=== PATIENT | female | born 1990 ===

== ENCOUNTER 2020-08-09 00:36 | Inpatient (IN) | payer OTHER ==
[2020-08-09] MEDS ORDERED: MINERAL OIL 30 ML ORAL LIQD PO PRN (02:48)
[2020-08-09] MEDS ORDERED: ePHEDrine SULFATE 50 MG/1 ML INJ IV PRN (02:48)
[2020-08-09] MEDS ORDERED: TERBUTALINE 1 MG/1 ML INJ SUB-Q PRN (02:48)
[2020-08-09] MEDS ORDERED: BUTORPHANOL 2 MG/1 ML INJ IV PRN (02:48)
[2020-08-09] MEDS ORDERED: ONDANSETRON 4 MG/2 ML INJ IV PRN (02:48)
[2020-08-09] MEDS ORDERED: LIDOCAINE (2%) 20 MG/1 ML VIAL 20 ML MDV INFILTRATI ONE (02:48)
[2020-08-09] MEDS ORDERED: OXYTOCIN DRIP 30 UNITS/500 ML BAG IV SCH ×2 (03:00→07:00)
[2020-08-09] MEDS ORDERED: LACTATED RINGERS 1,000 ML IV SCH (03:00)
--- NOTE | 2020-08-09 03:33 | Ultrasound Report ---
Limited OB ultrasound INDICATION: , evaluate amniotic fluid index FINDINGS: There is a single intrauterine in cephalic presentation. Amniotic fluid index is 5.8 cm whi ch is decreased. heart rate is 127 bpm. IMPRESSION: Amniotic fluid index is 5.8 cm which is below normal. BIOPHYSICAL PROFILE FINDINGS: breathing movement: 2/2 movement: 2/2 posture and tone: 2/2 Qualitative amniotic fluid volume: 2/2 IMPRESSION: Total score for biophysical profile is 8/8 heart rate is 127 bpm Signer Name: Rajesh Raya MD Signed: 08/09/2020 3:28 AM Workstation Name: [id number]
[2020-08-09 04:39] LABS: Hematocrit 36.4 % (30.3-42.9); Hemoglobin 11.5 gm/dl (10.1-14.3); Mean Corpuscular HGB Conc 32 % (30-34); Mean Corpuscular Volume 77 fl (79-97); Platelet Count 287 K/mm3 (140-440); Red Blood Count 4.72 M/mm3 (3.65-5.03); Red Cell Distribution Width 16.4 % (13.2-15.2)
[2020-08-09] MEDS ORDERED: fentaNYL 100 MCG/2 ML INJ IV PRN (05:52)
--- NOTE | 2020-08-09 06:48 | History and Physical Report ---
History of Present Illness Date of examination: 08/09/20 Date of admission: 08/09/20 02:49 Chief complaint: Labor pains History of present illness: Early entry to care at 6 4/7 weeks to [facility]. course complicated by maternal obesity (BMI 31) and anemia. Past History Past Medical History: no pertinent history Past Surgical History: no surgical history Family/Genetic History: other (hemophilia - son, brother) - Obstetrical History Expected Date of Delivery: 08/12/20 Actual Gestation: 39 Week(s) 4 Day(s) : 3 Para: 2 Hx # Term Pregnancies: 2 Number of Pregnancies: 0 Spontaneous Abortions: 0 Induced : 0 Number of Living Children: 2 #1 Gender: Female year: 2[birth year] Birthweight: 2.608 kg Method of Delivery: Vaginal Gestational age at delivery: 40 Complications: none #2 Infant Gender: Male year: 2,[birth year] Birthweight: 3.062 kg Method of Delivery: Vaginal Gestational age at delivery: 40 Complications: none Medications and Allergies Allergies Allergy/AdvReac Type Severity Reaction Status Date / Time No Known Allergies Allergy Unverified 08/09/20 01:33 Active Meds: Active Medications Butorphanol Tartrate (Butorphanol 2 Mg/1 Ml Inj) 2 mg IV Q2H PRN PRN Reason: Pain , Severe (7-10) Ephedrine Sulfate (Ephedrine Sulfate 50 Mg/1 Ml Inj) 10 mg IV Q2M PRN PRN Reason: Hypotension Fentanyl (Fentanyl 100 Mcg/2 Ml Inj) 100 mcg IV Q2H PRN PRN Reason: Labor Pain Last Admin: 08/09/20 05:55 Dose: 100 mcg Documented by: Oxytocin/Sodium Chloride (Pitocin/Ns 30 Unit/500ml) 30 units in 500 mls @ 2 mls/hr IV TITR SOY; Protocol Lactated Ringer's (Lactated Ringers) 1,000 mls @ 125 mls/hr IV DIRECT SOY Oxytocin/Sodium Chloride (Pitocin/Ns 30 Unit/500ml) 30 units in 500 mls @ 40 mls/hr IV TITR SOY; Protocol Mineral Oil (Mineral Oil 30 Ml Oral Liqd) 30 ml PO QHS PRN PRN Reason: Constipation Ondansetron HCl (Ondansetron 4 Mg/2 Ml Inj) 4 mg IV Q8H PRN PRN Reason: Nausea And Vomiting Terbutaline Sulfate (Terbutaline 1 Mg/1 Ml Inj) 0.25 mg SUB-Q ONCE PRN PRN Reason: Hyperstimulation/Hypertonicity Review of Systems All systems: negative - Vital Signs Vital signs: Vital Signs Pulse Pulse Ox 65 99 08/09/20 01:00 08/09/20 01:00 Temp Pulse Resp BP Pulse Ox 97.9 F 72 20 107/58 98 08/09/20 05:50 08/09/20 06:37 08/09/20 05:55 08/09/20 06:29 08/09/20 06:37 - Physical Exam Breasts: Positive: normal Cardiovascular: Regular rate Lungs: Positive: Clear to auscultation, Normal air movement Abdomen: Positive: normal appearance, soft Genitourinary (Female): Positive: normal external genitalia, normal perenium Vagina: Positive: normal moisture Uterus: Positive: enlarged Anus/Rectum: Positive: normal perianal skin Extremities: Positive: normal - Obstetrical FHR: category 1 Uterine Contraction Monitor Mode: External Cervical Dilatation: 9.5 (Small amount of bloody show noted on exam.) Cervical Effacement Percentage: 100 station: +1 Uterine Contraction Frequency (min): 2 Uterine Contraction Duration: 60-70 Uterine Contraction Pattern: Regular Uterine Tone Measurement Phase: Resting Uterine Contraction Intensity: Moderate Results Result Diagrams: 08/09/20 03:45 Abnormal lab results 08/09/20 Range/Units 03:45 WBC 11.2 H (4.5-11.0) K/mm3 MCV 77 L (79-97) fl MCH 24 L (28-32) pg RDW 16.4 H (13.2-15.2) % All other labs normal. Assessment and Plan A: IUP at 39 4/7 weeks Category I tracing Active Labor Maternal Obesity GBS negative P: Admit to L&D per routine orders Expectant Management Anticipate
--- NOTE | 2020-08-09 07:02 | Procedure Note ---
OB Delivery Note - Delivery Date of Delivery: 08/09/20 (0625) Surgeon: HESHAM LIZAMA Estimated blood loss: 100cc - Vaginal Delivery presentation: vertex Delivery position: OA Intrapartum events: other(please specify) (Decreased CANDY (5.8)) Delivery induction: none Delivery monitor: external FHT, external uterine Route of delivery: Delivery placenta: spontaneous Delivery cord: 3 umbilical vessels Episiotomy: none Delivery laceration: none Anesthesia: none Delivery comments: of a live 6'6 male infant with Apgars of 8 and 9 over an intact perineum under IV pain control at 06:25 on 08/09/20. Infant directly to maternal abd/chest, skin to skin contact. Delayed cord clamping; cord double clamped and cut by father of baby. Spontaneous delivery of placenta complete and intact with [place] side presenting at 0629. Fundus is firm and midline, located 4 below the U. Lochia is scant. Cord blood collected. Placenta to be discarded. - Infant A at 1 minute: 8 at 5 minutes: 9 Infant Gender: Male (6'6)
[2020-08-09] MEDS ORDERED: WITCH HAZEL/ GLYCERIN PAD TP PRN (07:03)
[2020-08-09] MEDS ORDERED: diphenhydrAMINE 25 MG CAP PO PRN (07:03)
[2020-08-09] MEDS ORDERED: HYDROcodone/ACETAMINOPHEN 5-325 MG TAB PO PRN (07:03)
[2020-08-09] MEDS ORDERED: LANOLIN/ZINC/DIMETHICONE (LANSINOH) 7 GM TP PRN (07:30)
[2020-08-09] MEDS ORDERED: HYDROCORTISONE 25 MG RECTAL SUPP PR PRN (10:00)
[2020-08-09] MEDS ORDERED: PRENATAL VIT27-FE FUMARATE-FOLIC ACID VIT TAB PO SCH (10:00)
[2020-08-09] MEDS: IBUPROFEN 600 MG TAB PO SCH (14:37)
[2020-08-09 21:03] LABS: Hematocrit 31.8 % (30.3-42.9); Hemoglobin 10.5 gm/dl (10.1-14.3)
--- NOTE | 2020-08-10 10:32 | Discharge Summary ---
Providers - Providers Date of Admission: 08/09/20 02:49 Date of discharge: 08/10/20 Attending physician: SUJEY BRIONES Primary care physician: SUJEY BRIONES Hospitalization Reason for admission: active labor Delivery: Episiotomy: none Laceration: none Other procedures: none complications: none Discharge diagnosis: IUP at term delivered, other (anemia) [place] baby: male Hospital course: See admission H & P; OB delivery summary and PP progress notes Condition at discharge: Good Disposition: DC-01 TO HOME OR SELFCARE - Discharge Diagnoses (1) Status post normal vaginal delivery Status: Acute (2) Anemia Status: Acute Qualifiers: Anemia type: other cause Other causes of anemia: acute posthemorrhagic Qualified Code(s): D62 - Acute posthemorrhagic anemia Comment: Asymptomatic Plan - Provider Discharge Summary Activity: routine, no sex for 6 weeks, no heavy lifting 4 weeks, no strenuous exercise Diet: other (Iron rich diet) Instructions: routine Additional instructions: [] Smoking cessation referral if applicable(refer to patient education folder for contact #) [] Refer to [facility] Booklet Call your doctor immediately for: * Fever > 100.5 * Heavy vaginal bleeding ( >1 pad per hour) * Severe persistent headache * Shortness of breath * Reddened, hot, painful area to leg or breast - Follow up plan Follow up: SUJEY BRIONES MD [Primary Care Provider] - 6 Weeks
[2020-08-10] MEDS: IBUPROFEN 600 MG TAB PO SCH (12:51)
[2020-08-10] MEDS ORDERED: DIPHtheria,PERTUSSIS(ACELL),TETANUS VACCINE/PF 0.5 ML VIAL IM ONE (13:00)
[2020-08-10 16:35] VITALS: BP 95/40
== END 2020-08-10 18:00 | disposition home or self-care (01) | DRG 806 ==
LOC: TRG 00:36 → APU 00:47 → TRG 02:48 → LD 02:49 → OB 08:32
PROVIDERS: ADMIT Obstetrics & Gynecology; ATTEND Obstetrics & Gynecology
PROC: 10E0XZZ Delivery of Products of Conception, External Approach (ICD-10-PCS; principal; 2020-08-09)
PROC: 3E0234Z Introduction of Serum, Toxoid and Vaccine into Muscle, Percutaneous Approach (ICD-10-PCS; 2020-08-09)
DX: O99.02 Anemia complicating childbirth (principal); D62 Acute posthemorrhagic anemia; O99.214 Obesity complicating childbirth; E66.01 Morbid (severe) obesity due to excess calories; Z20.822 Contact with and (suspected) exposure to COVID-19; Z37.0 Single live birth; O80 Encounter for full-term uncomplicated delivery; Z3A.39 39 weeks gestation of pregnancy
CPT/HCPCS: 36415; 76815; 76819; 84112; 85014; 85018; 85027; 86592; 86850; 86900; 86901; 90715; G0378; J3010; U0003